=== PATIENT | male | born 1975 | race Caucasian/White ===

== ENCOUNTER → 2025-04-29 | Outpatient (CLI) | payer MEDICARE, OTHER ==
[~2025-04-29] MED LIST: FLUO10; OLAN5 PO; OXCA150 PO; PRILOSEC OTC20 MG PO; PROM25 PO; Pepcid20 MG PO; Prednisone10 MG PO; QUET100 PO; RXLORA1 PO; Zovirax400 MG PO
== END | disposition home or self-care (01) ==
LOC: LAB 17:39 → LAB SHORT 17:39
DX: L08.9 Local infection of the skin and subcutaneous tissue, unspecified (principal)
CPT/HCPCS: 87070; 87075; 87077; 87147; 87186; 87205